=== PATIENT | male | born 1990 | race Two or more races ===

== ENCOUNTER 2017-03-26 13:38 | Inpatient (IN) | payer OTHER ==
[~2017-03-26] VITALS: Ht 177.8 cm; Wt 146.5 kg
[2017-03-26] MEDS ORDERED: methylPREDNISolone INJ 125 MG/2 ML VIAL (J2930) IV ONE (14:15)
[2017-03-26] MEDS ORDERED: ALBUTEROL SULFATE 2.5 MG/0.5 ML INH NEB SOLN NEB ONE (14:15)
[2017-03-26 14:16] LABS: BASO # 0.1 10^3/uL (0.0-0.2); BASO % 0.3 % (0.0-1.0); EOS % 0.1 % (0.0-3.0); IMMATURE GRANULOCYTE % 0.9 % (0-0); LYMPH # 2.5 10^3/uL (1.5-6.5); LYMPH % 13.7 % (24.0-44.0); MEAN CORPUSCULAR HEMOGLOBIN 25.9 pg (27.0-33.0); MEAN CORPUSCULAR HGB CONC 30.9 g/dl (32.0-36.5); MEAN CORPUSCULAR VOLUME 83.6 fl (80.0-96.0); MONO # 1.1 10^3/uL (0.0-0.8); MONO % 5.9 % (0.0-5.0); NEUTROPHILS # 14.3 10^3/uL (1.8-7.7); NEUTROPHILS % 79.1 % (36.0-66.0); PLATELET COUNT, AUTOMATED 255 10^3/uL (150-450); RED CELL DISTRIBUTION WIDTH 14.7 % (11.5-14.5); WHITE BLOOD COUNT 18.1 10^3/uL (4.0-10.0)
[2017-03-26 14:36] LABS: ABG BASE EXCESS -3.3 (-2.0-2.0); ABG HCO3 20.1 MEQ/L (22.0-26.0); ABG PARTIAL PRESSURE CO2 31.4 mmHg (35.0-45.0); ABG PARTIAL PRESSURE O2 61.9 mmHg (75.0-100.0); ABG STANDARD HCO3 21.6 MEQ/L (22.0-26.0); ABG TOTAL CO2 21.1 MEQ/L (22.0-29.0); ABG pH (ARTERIAL) 7.424 UNITS (7.350-7.450)
[2017-03-26 14:44] LABS: ALBUMIN 3.1 GM/DL (3.2-5.2); ALBUMIN/GLOBULIN RATIO 0.69 (1.00-1.93); ALKALINE PHOSPHATASE 103 U/L (45-117); ALT/SGPT 92 U/L (12-78); ANION GAP 11 MEQ/L (8-16); AST/SGOT 57 U/L (7-37); BILIRUBIN,DIRECT 0.3 MG/DL (0.0-0.2); BLOOD UREA NITROGEN 14 MG/DL (7-18); CALCIUM LEVEL 8.5 MG/DL (8.5-10.1); CARBON DIOXIDE LEVEL 21 MEQ/L (21-32); CHLORIDE LEVEL 108 MEQ/L (98-107); CREATININE FOR GFR 1.16 MG/DL (0.70-1.30); GLOMERULAR FILTRATION RATE > 60.0 (>60); GLUCOSE, FASTING 122 MG/DL (70-105); POTASSIUM SERUM 4.6 MEQ/L (3.5-5.1); SODIUM LEVEL 140 MEQ/L (136-145); TOTAL PROTEIN 7.6 GM/DL (6.4-8.2)
--- NOTE | 2017-03-26 14:47 | REP ---
REASON: Dyspnea. COMPARISON: 05/01/2013. The technique utilized in obtaining the radiograph has magnified the cardiac silhouette and accentuated the interstitial markings. FINDINGS: The superior mediastinal structures are midline. The cardiac silhouette is unremarkable in size, shape, and position. The diaphragmatic surfaces of the lungs are regular, and the costophrenic angles are clear. The pulmonary cho are clear. The imaged osseous structures are intact. IMPRESSION: There is no acute cardiopulmonary disease. There is some motion artifact obscuring the fine detail and there is less than optimal beam penetration due to the patient's body habitus. If relevant, consider PA and lateral views in the department of radiology. Signed by Jayjay Avelar DO 03/26/2017 02:48 P
[2017-03-26] MEDS: IPRATROPIUM 0.5MG/ALBUTEROL 2.5MG INH SOL UD 3ML (DUONEB)(J7620) NEB SCH ×3 (15:18→16:14)
[2017-03-26] MEDS ORDERED: ISOVUE-370 76% 100ML VIAL (Q9967) As Ordered ONE (15:29)
[2017-03-26] MEDS ORDERED: ACETAMINOPHEN TAB 650MG DOSE (2X325MG) PO PRN (16:15)
[2017-03-26] MEDS ORDERED: ONDANSETRON 4MG/2ML VIAL (J2405) IV PRN (16:15)
[2017-03-26] MEDS ORDERED: CEFTRIAXONE SOD 2 GM in APPROPRIATE DILUENT 1 EA IV ONE (16:30)
[2017-03-26] MEDS ORDERED: IPRATROPIUM 0.5MG/ALBUTEROL 2.5MG INH SOL UD 3ML (DUONEB)(J7620) NEB PRN (16:30)
[2017-03-26] MEDS ORDERED: AZITHROMYCIN INJ 500 MG, VIAL MATE ADAPTER 1 EACH in D5W 250 ML IV ONE (16:30)
[2017-03-26] MEDS ORDERED: HEPARIN SOD (PORCINE) 5000 UNITS/ML VIAL IV PRN (16:45)
[2017-03-26] MEDS ORDERED: SODIUM CHLORIDE 0.9% 1000 ML IV ONE (17:00)
--- NOTE | 2017-03-26 18:34 | HPEPDOC ---
[facility] Medical History & Physical Date of Admission Mar 26, 2017 Primary Care Physician: A Other Provider PCP: NONE Attending Physician: ROSALBA PARRY MD History and Physical CHIEF COMPLAINT: Cough, shortness of breath HISTORY OF PRESENT ILLNESS: 27-year-old obese male with 5-7 day history of worsening dyspnea on exertion, shortness of breath, productive sputum, but denies fevers, chills, rigors. He was seen in the emergency department had been given nebulizer treatments, Solu-Medrol and continued to have issues with desaturating when he would lie flat and attempt to perform a lower extremity Doppler ultrasound. He says that he has been exposed to sick family members at home. His symptoms started out as he thought he had a flulike illness. He's been using NyQuil, but is not been using any other home remedies and he denies using any inhalers. He denies any significant past medical history no recent travel, no surgery. No lower extremity injuries. The emergency department, he was tachycardic, a mild left shift, lactic acidosis of 2.3. Portable chest x-ray did demonstrate bibasilar patchy infiltrates. His d-dimer was greater than 4000, and his CT angiogram of the chest didn't suggest right basilar pneumonia, and question of bibasilar pulmonary emboli. ED physician did attempt to do a lower extremity Doppler ultrasound. However, the patient did desaturate and was unable to tolerate the test to be performed. PAST MEDICAL HISTORY: Morbid obesity Prior history of depression (not currently being treated. He denies any suicidal ideation) PAST SURGICAL HISTORY: None SOCIAL HISTORY: Denies tobacco use. Denies alcohol use except for rare occasion. Denies illicit drug use. Positive sick contacts with family members. No recent travel. FAMILY HISTORY: Noncontributory ALLERGIES: Please see below. REVIEW OF SYSTEMS: CONSTITUTIONAL: No fever, chills, weight loss, nausea or vomiting . HEENT: No headache, lightheadedness, blurred or loss of vision. No difficulty with speech or swallow. CARDIOVASCULAR: No chest pain, palpitations, paroxysmal nocturnal dyspnea or lower extremity edema RESPIRATORY: Dyspnea on exertion with cough, wheeze and productive sputum. He denies any hemoptysis. GENITOURINARY: No dysuria, frequency, or discharge MUSCULOSKELETAL: No bone, muscle or joint pain. GASTROINTESTINAL: No Nausea, vomiting, change in appetite. Bowel movements are regular without hematochezia or melena. No bladder or bowel incontinence. SKIN: No complaint of lesions, abrasions or rashes NEUROLOGICAL: No blurred vision, headaches, paraesthesias or paralysis PSYCHIATRIC: No depression, anxiety, audiovisual hallucinations. No suicidal ideations. ENDOCRINE: Denies history of diabetes or thyroid disorder. No history of endocrine abnormalities. HEMATOLOGIC/ONCOLOGIC: No bleeding or bruising disorders. Denies VTE. LYMPHATIC: No lumps, bumps or swelling of neck, axilla or groin. No night sweats or weight loss. HOME MEDICATIONS: Please see below. PHYSICAL EXAMINATION: VITAL SIGNS: Please see below. GENERAL: NAD, A&OX3, Pleasant HEENT: PERRLA, throat clear, neck supple, no JVD CARDIOVASCULAR: RRR RESPIRATORY: Diminished bibasilar breath sounds with faint rhonchi and occasional wheeze. ABDOMINAL: Obese/soft, NT/ND normoactive bowel sounds EXTREMITIES: no edema/no calf tenderness NEUROLOGICAL: CN'S II-XII grossly intact PSYCHOLOGICAL: negative LABORATORY DATA: See below. IMAGING: CT angiogram of the chest: Bibasilar infiltrates, question of bilateral lower lobe already emboli. Chest x-ray: Bibasilar infiltrates Twelve-lead EKG: Sinus tachycardia with ventricular rate of 116, questionable interventricular conduction delay but no acute ST-T wave abnormality. MICROBIOLOGY: Please see below. IMPRESSION: 27-year-old gentleman presents to the emergency department with 5-7 days, worsening symptoms of dyspnea on exertion, productive sputum, cough and what appears to be bilateral lower lobe pneumonia/sepsis and questionable palmar he emboli. PROBLEM LIST: 1. Community acquired pneumonia. 2. Sepsis. 3. Leukocytosis. 4. Lactic acidosis. 5. Questionable bilateral lower lobe pulmonary emboli with elevated d-dimer and questionable findings on CT angiogram of the chest. 6. Morbid obesity which complicates medical care. PLAN: Patient be admitted to ICU on telemetry. We'll continue with DuoNeb's, a cappella, IV Zithromax and Rocephin. Continue with IV fluids per sepsis bundle and reflex lactic acid in 4 hours. Blood cultures and sputum cultures are pending. Influenza A and B testing was negative. Should his oxygen status necessitate, consider CPAP. He has poor venous access and I've consented him for central line placement should he need one. Regarding the acute pulmonary emboli: This is a questionable finding on CT angiogram of the chest. He was unable to tolerate lying flat for Doppler venous ultrasound to rule out DVT. I reviewed this with pulmonology and we were unable to determine any further on CT angiogram due to poor quality. In the meantime, we'll go ahead and start on heparin drip, IV fluids for sepsis. Additionally, we could consider attempting venous ultrasound lower extremities tomorrow versus repeat CT angiogram of the chest in 24-48 hours once he is hydrated better. DVT PROPHYLAXIS: Heparin drip DISPOSITION: Greater than 2 midnights, and he'll need to be established with a new primary care provider prior to discharge. Vital Signs Vital Signs Date Time Temp Pulse Resp B/P (MAP) Pulse Ox O2 Delivery O2 Flow Rate FiO2 03/26/17 17:24 98.2 03/26/17 17:08 115 91 03/26/17 15:43 24 03/26/17 14:05 Nasal Cannula 4.0 90 Laboratory Data Labs 24H Laboratory Tests 2 03/26/17 14:07: Immature Granulocyte % (Auto) 0.9H, White Blood Count 18.1H, Red Blood Count 4.95, Hemoglobin 12.8L, Hematocrit 41.4L, Mean Corpuscular Volume 83.6, Mean Corpuscular Hemoglobin 25.9L, Mean Corpuscular Hemoglobin Concent 30.9L, Red Cell Distribution Width 14.7H, Platelet Count 255, Neutrophils (%) (Auto) 79.1H , Lymphocytes (%) (Auto) 13.7L, Monocytes (%) (Auto) 5.9H, Eosinophils (%) (Auto ) 0.1, Basophils (%) (Auto) 0.3, Neutrophils # (Auto) 14.3H, Lymphocytes # (Auto ) 2.5, Monocytes # (Auto) 1.1H, Eosinophils # (Auto) 0.0, Basophils # (Auto) 0.1 , Immature Granulocyte # (Auto) 0.2H, Nucleated Red Blood Cells % (auto) 0.2H, Anion Gap 11, Glomerular Filtration Rate > 60.0, Lactic Acid Level 2.3*H, Calcium Level 8.5, Aspartate Amino Transf (AST/SGOT) 57H, Alanine Aminotransferase (ALT/SGPT) 92H, Alkaline Phosphatase 103, Total Bilirubin 1.0, Direct Bilirubin 0.3H, Total Protein 7.6, Albumin 3.1L, Albumin/Globulin Ratio 0.69L, Thyroid Stimulating Hormone (TSH) 4.590H 03/26/17 14:16: Blood Gas Bicarbonate Standard 21.6L, Arterial Blood pH 7.424, Arterial Blood Partial Pressure CO2 31.4L, Arterial Blood Partial Pressure O2 61.9L, Arterial Blood Total CO2 21.1L, Arterial Blood HCO3 20.1L, Arterial Blood Base Excess - 3.3L, Arterial Blood Oxygen Saturation 90.4L 03/26/17 14:39: Activated Partial Thromboplast Time 20.0L, D-Dimer, Quantitative > 4000.0H CBC/BMP Laboratory Tests 03/26/17 14:07 Red Blood Count 4.95, Mean Corpuscular Volume 83.6, Mean Corpuscular Hemoglobin 25.9 L, Mean Corpuscular Hemoglobin Concent 30.9 L, Red Cell Distribution Width 14.7 H, Neutrophils (%) (Auto) 79.1 H, Lymphocytes (%) (Auto) 13.7 L, Monocytes (%) (Auto) 5.9 H, Eosinophils (%) (Auto) 0.1, Basophils (%) (Auto) 0.3, Neutrophils # (Auto) 14.3 H, Lymphocytes # (Auto) 2.5, Monocytes # (Auto) 1.1 H , Eosinophils # (Auto) 0.0, Basophils # (Auto) 0.1 Microbiology Microbiology 03/26/17 Blood Culture, Received Pending 03/26/17 Blood Culture, Received Pending 03/26/17 Influenza Virus Type A Antigen - Final, Complete 03/26/17 Influenza Virus Type B Antigen - Final, Complete Home Medications No Active Prescriptions or Reported Meds Allergies Coded Allergies: No Known Allergies (Unverified , 03/26/17) JAYY MCGEE DO Mar 26, 2017 18:34
[2017-03-26 19:00] VITALS: BP 142/84
[2017-03-26 20:00] VITALS: PULSE 120
[2017-03-26 20:22] VITALS: O2SAT 95
[2017-03-26] MEDS: DOCUSATE SODIUM 100 MG CAP PO SCH (21:00)
[2017-03-26] MEDS ORDERED: LIDOCAINE 2% MDV 20 ML VIAL As Ordered ONE (22:22)
[2017-03-26] MEDS ORDERED: LIDOCAINE 1% MDV 20ML VIAL As Ordered ONE (22:22)
[2017-03-26] MEDS: HEPARIN DRIP 25,000 UNITS in APPROPRIATE DILUENT 1 EA IV SCH (23:35)
[2017-03-26] MEDS ORDERED: FUROSEMIDE 40 MG/4 ML VIAL (J1940) IV ONE (23:45)
[2017-03-27] VITALS (9 sets, daily range): BP systolic 129–148; BP diastolic 58–91; O2SAT 95–97
[2017-03-27] MEDS: IPRATROPIUM 0.5MG/ALBUTEROL 2.5MG INH SOL UD 3ML (DUONEB)(J7620) NEB SCH ×4 (00:25→23:58)
[2017-03-27] MEDS: methylPREDNISolone INJ 125 MG/2 ML VIAL (J2930) IV SCH ×2 (01:08→15:16)
[2017-03-27] MEDS ORDERED: LIDOCAINE 1% MDV 20ML VIAL SC ONE (02:30)
[2017-03-27 05:45] LABS: MEAN CORPUSCULAR HEMOGLOBIN 26.2 pg (27.0-33.0); MEAN CORPUSCULAR HGB CONC 31.1 g/dl (32.0-36.5); MEAN CORPUSCULAR VOLUME 84.2 fl (80.0-96.0); PLATELET COUNT, AUTOMATED 224 10^3/uL (150-450); RED CELL DISTRIBUTION WIDTH 14.9 % (11.5-14.5)
[2017-03-27 06:19] LABS: ANION GAP 10 MEQ/L (8-16); BLOOD UREA NITROGEN 16 MG/DL (7-18); CALCIUM LEVEL 8.7 MG/DL (8.5-10.1); CARBON DIOXIDE LEVEL 25 MEQ/L (21-32); CHLORIDE LEVEL 107 MEQ/L (98-107); CREATININE FOR GFR 1.29 MG/DL (0.70-1.30); GLOMERULAR FILTRATION RATE > 60.0 (>60); GLUCOSE, FASTING 153 MG/DL (70-105); POTASSIUM SERUM 4.9 MEQ/L (3.5-5.1); SODIUM LEVEL 142 MEQ/L (136-145)
--- NOTE | 2017-03-27 07:15 | ECGEPIP ---
Stationary ECG Study [facility] - ED Test Date: 2017-03-26 Pat Name: POLINA BEAUCHAMP Department: Room: [place] [address] Gender: M Is Architect: faby : 1990 Requested By: Sigifredo Haynes Order Number: [id number] Reading MD: Sigifredo Villa Measurements Intervals [place] Rate: 116 P: 40 [place]: 145 QRS: -13 QRSD: 104 T: 32 QT: 348 QTc: 485 Interpretive Statements SINUS TACHYCARDIA LOW QRS VOLTAGE IN PRECORDIAL LEADS INCOMPLETE RIGHT BUNDLE BRANCH BLOCK POOR R WAVE PROGRESSION NO PRIORS FOR COMPARISON Electronically Signed On 03-27-2017 7:14:57 EST by Sigifredo Villa
--- NOTE | 2017-03-27 07:26 | REP ---
Portable chest, 11:00 p.m., single AP view, the patient semi upright: Comparison is a study from 02:13 p.m. earlier this same date. There is a left subclavian central venous catheter with the tip in the superior vena cava. There is no pneumothorax. Lung cho are clear and unchanged. The study is underpenetrated as previously. Cardiac size is normal for portable positioning. Impression: Left subclavian central venous catheter. No pneumothorax. No other interval change. Signed by Checo Okeefe MD 03/27/2017 07:18 A
--- NOTE | 2017-03-27 07:30 | REP ---
REASON FOR EXAM: Dyspnea. COMPARISON: None. CONTRAST: 100 mL Isovue 370. The examination is markedly limited due to the patient's body habitus. There is significant ring and beam hardening artifact throughout the exam. There is poor visualization of the pulmonary arterial vasculature to a such a degree that a pulmonary embolus cannot be definitely ruled in or ruled out. There appear to be focal filling defects in the lower lobe pulmonary arteries, right greater than left. There are bilateral lower lobe opacities and opacities in the posterior segment of the upper lobes as well, some of which have air bronchograms. There is no evidence of a pleural or pericardial effusion. There is no evidence of an abnormality involving the imaged upper abdomen. There is no evidence of an abnormality involving the osseous structures. IMPRESSION: Marked exam limitations. Possible lower lobe emboli Bilateral lung opacities possibly representing pneumonia or atelectasis or a combination there of. Signed by Jayjay Avelar DO 03/27/2017 02:06 P
[2017-03-27 08:07] LABS: T UPTAKE 36 % (33-40)
[2017-03-27] MEDS: DOCUSATE SODIUM 100 MG CAP PO SCH ×2 (08:13→20:15)
[2017-03-27 09:45] LABS: THYROXINE (T4) 9.3 UG/DL (4.5-12.0)
[2017-03-27] MEDS: HEPARIN DRIP 25,000 UNITS in APPROPRIATE DILUENT 1 EA IV SCH ×2 (10:11→20:17)
--- NOTE | 2017-03-27 12:24 | RO ---
DATE OF PROCEDURE: 03/26/2017 PREPROCEDURE DIAGNOSIS: Need for vascular access, pulmonary embolism, sepsis. POSTPROCEDURE DIAGNOSIS: Need for vascular access, pulmonary embolism, sepsis. PROCEDURE: Insertion of left subclavian central line. SURGEON: Dr. Vasu Bae. FELLMONGERY WORKER: None. ANESTHESIA: 1% lidocaine. DESCRIPTION OF PROCEDURE: The patient is an morbidly obese. The skin was stretched with adhesive tape so that the clavicle could be at least palpated. The patient was then prepped and draped in the usual sterile fashion and the skin infiltrated with 1% lidocaine. The vein was found on the first pass and the wire passed without difficulty. The tract was dilated and the catheter was placed with some difficulty secondary to its curving under the clavicle secondary to all the adipose tissue. Nonetheless, it went in and the wire could be removed without difficulty. The ports were aspirated and flushed without difficulty and the catheter was secured to the chest wall with #3-0 silk suture. The patient tolerated the procedure well and a chest x-ray is pending.
--- NOTE | 2017-03-27 13:01 | CR ---
DATE OF CONSULTATION: 03/27/2017 Time patient was seen was at 10:00 a.m. CONSULTING PHYSICIAN: Dr. Gustafson SWITCHBOARD OPERATOR: Dr. Shell REASON FOR CONSULTATION: Hypoxic respiratory failure. CHIEF COMPLAINT: Shortness of breath. PRIMARY CARE PROVIDER: None. HISTORY OF PRESENT ILLNESS: 27-year-old morbidly obese male who presented with shortness of breath and productive sputum. Per patient, his symptoms with severe shortness of breath started 5 to 7 days ago and it has been progressively getting worse. The patient also admits to reduced urination and perfuse sweating. Per patient, this has never happened in the past; however, he did upper respiratory infection last winter, however it did not require him to be hospitalized. The patient also reported that the patient's niece has strep throat. The patient admits to mild sputum production, which was yellow and currently does not have any sputum. He denies any recent traveling; however, he did go to [place] back in October this year. It was a [address] ride and he took one break. His job also requires 9 hours of sitting per day and he takes four to five breaks per day also. Otherwise, denies any pain in the legs except on the right leg numbness. Denies any shortness of breath at baseline. Sleeps with one pillow and lying on his side. Does not have a family doctor and does not remember the last time that he saw primary care provider. Otherwise, the patient denies any fever, chills, abdominal pain, nausea, vomiting, diarrhea, constipation, any problem with urination currently or any blood in the urine. Denies any change in the lower extremity size or swelling. ALLERGIES: No known drug allergies. PAST MEDICAL HISTORY: 1. Morbid obesity. 2. Prior history of depression. PAST SURGICAL HISTORY: Denies. FAMILY HISTORY: The patient's father has diabetes and pancreatitis. 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 Denies any smoking, drinking or recreational drug use. Admits to sick contact with family member. Denies any recent traveling. Did travel six months ago. REVIEW OF SYSTEMS: GENERAL: Denies any fever or chills. Admits to perfuse sweating. Admits to traveling six months ago. HEENT: Denies any changes with vision, hearing or taste. CARDIOVASCULAR: Denies any chest pain. Admits to exertional shortness of breath at baseline. RESPIRATORY: Denies any lung problems. Denies any wheezing. Admits to cough and sputum production. GASTROINTESTINAL: Denies any abdominal pain, nausea, vomiting, diarrhea, constipation. MUSCULOSKELETAL: Denies any pain anywhere. Admits to right leg numbness at baseline. SKIN: Denies any ulcerations, lumps or bumps anywhere. NEUROLOGIC: Denies any blurred vision, headaches, paralysis. Admits to feeling lightheadedness on exertion, however. PSYCHIATRIC: Denies any current depression, has a history of depression. ENDOCRINE: Denies any polydipsia, polyuria. Admits to reduced urination; however, in the past days. Admits to severe sweating. HEMATOLOGY/ONCOLOGY: Denies any easy bruising or any bleeding anywhere. HOME MEDICATIONS: None. PHYSICAL EXAMINATION: VITAL SIGNS: Temperature 96.4, pulse 108, respirations 30, blood pressure 129/58, oxygen saturation 97% on CPAP with a PEEP of 6, FiO2 of 40. GENERAL: The patient is severely morbidly obese, young male who was awake, alert, oriented times three. Does not appear to be in distress. Lying comfortably in his recliner with head elevated at 70 degrees. HEENT: Normocephalic, atraumatic. PERRL, EOMI, Mucosa moist. NECK: Supple. No neck lymphadenopathy. Left TLC in place dry, clean and intact. CARDIOVASCULAR: Regular rate and rhythm. Distant heart sounds due to body habitus. LUNGS: Reduced breathing sounds due to body habitus bilaterally. Otherwise, chest rises equally bilaterally. ABDOMEN: Positive bowel sounds. Soft, nontender, nondistended. No peritoneal signs. No ecchymosis. Obese. EXTREMITIES: No edema, clubbing, or cyanosis; however, there was severe obesity involved. Nontender to palpation, however. SKIN: Warm and dry. NEUROLOGIC: Cranial nerves II through XII intact. No focal neurological deficits. LABORATORY DATA: WBC 15, hemoglobin 12.4, hematocrit 39.9, MCV was 84.2, platelet count was 224. Sodium 142, potassium 4.9, chloride 107, bicarbonate 25, BUN 16, creatinine 1.29 , fasting glucose 153, lactic acid last night was 2.1, calcium 8.7, C-reactive protein 7. Free T4 3.1, T3 of 36. PTT 38.9. D-dimer yesterday was greater than 4000. Blood culture times two is currently pending. Influenza screening has been negative. Respiratory panel done this morning was negative. The patient had a portable chest x-ray yesterday after line placement that showed left subclavian central line catheter. No pneumothorax. On 03/26/2017 at 3:30, the patient had a CT angio of the chest that showed marked examination limitations due to obesity, possible lower lobe emboli, bilateral lung opacities, possibly representing pneumonia or atelectasis or a combination thereof. On the same day, the patient also had portable chest x-ray that shows no acute cardiopulmonary disease. Some motion artifact obscuring the fine details and there is less than optimal beam penetration due to the patient's body habitus. Current hospital medications include: - Azithromycin 500 mg IV every 24 hours - Rocephin 1 gram IV every 24 hours - warfarin 5 mg by mouth daily - Solu-Medrol 80 mg IV every 12 hours - DuoNeb treatment every 8 hours - Colace 100 mg by mouth twice a day - heparin drip - Tylenol 650 mg one tablet by mouth every 4 hours as needed - Zofran 4 mg one tablet by mouth every 6 hours as needed ASSESSMENT AND PLAN: 27-year-old male with a past medical history of morbid obesity with a Body Mass Index (BMI) of 95, presented with shortness of breath and we have been consulted to manage the patient's hypoxic respiratory failure. 1. SOB secondary to Hypoxic respiratory failure possible due to community acquired pneumonia. The patient's initial ABG shows PO2 of 61.9. The patient also has elevated lactic acid of 2.3. Was on CPAP from admission. He may be off CPAP may continue throughout the night. And use supplementary oxygen through out day. Continue current antibiotics for possible pneumonia. Acapella has been added. Continue steroid taper and IV hydration as needed. Continue to followup with blood culture, and obtain sputum culture continue to monitor. 2. Possible lower lobe PE, he has a D-dimer of over 4000. Severe morbid obesity and sedentary life style certainly elevate risk for DVT. CT angio of the chest shows possible pulmonary embolism bilaterally. The patient has already been started on heparin drip, as well as oral warfarin. We will recommend to followup with lower extremity Doppler duplex and continue current therapy. 3.KEYA suspected.....Will clearly need formal NPSG after discharge The patient has been discussed with attending doctor, Dr. Shell. My faculty preceptor for this patient encounter was physically present during the encounter and was fully available. All aspects of the patient interview, examination, medical decision making process, and medical care plan development were reviewed and approved by the faculty preceptor. The faculty preceptor is aware and concurs with the plan as stated in the body of this note and will attest to such by his/her co-signature. IESHA
[2017-03-27 13:08] LABS: INR 1.29
--- NOTE | 2017-03-27 13:51 | IPNPDOC ---
Subjective Date Seen The patient was seen on 03/27/17. Subjective Chief Complaint/HPI The patient is a 27-year-old male admitted with a reason for visit of Community Aquired Pneumonia, Sepsis. Events since last encounter Jed Cordova is a 27 yo male who presented with SOB. He claims that he still has SOB and chest pain while laying flat but it is improved since the previous day. He also admits to the SOB and chest pain when he moved from his bed to his chair. The chair was positioned immediately adjacent to his bed. He also admits to having a dry cough. He denies recent history of unilateral or bilateral leg pain, skin changes, or warmth. He had experienced urinary retention for the past day but it has since been resolved with Lasix and he claims that the discomfort from that is now gone. He denies fevers, chills, nausea, vomiting. He feels he is sweating more than usual and attributes this to being hot. General: Denies: Chills, Fatigue, Malaise, Normal Appetite Constitutional: Denies: Chills, Fever, Night Sweats Eyes: Denies: Vision change ENT: Denies: Head Aches, Dysphagia, Sore Throat Skin: Denies: Rash, Lesions, Bruising Pulmonary: Reports: Dyspnea, Cough (non productive) Cardiovascular: Reports: Chest Pain, Orthopnea, Denies: Palpitations, Edema Gastrointestinal: Denies: Nausea, Vomiting, Abdominal Pain, Diarrhea, Constipation, Melena, Hematochezia Genitourinary: Denies: Retention Hematologic: Denies: Enlarged Lymph Nodes Musculoskeletal: Denies: Neck Pain Neurological: Denies: Weakness Psych: Reports: Mood Normal Objective Physical Examination General Exam: Positive: Alert, Cooperative, No Acute Distress Eye Exam: Positive: PERRLA, EOMI ENT Exam: Positive: Atraumatic Neck Exam: Positive: Supple Chest Exam: Positive: Rales, Diminished (crackles at the base of lungs), Negative: Clear to auscultation, Wheezing Heart Exam: Positive: Tachycardic, Other (distant heart sounds), Negative: Gallops, Murmurs, Rubs Abdomen Exam: Positive: Normal bowel sounds, Soft, Negative: Tenderness, Hepatospenomegaly Extremity Exam: Positive: Normal pulses, Negative: Clubbing, Cyanosis, Edema Skin Exam: Positive: Nl turgor and temperature, Other skin issue (acanthosis nigricans noted on bilateral hands and back of the neck), Negative: Rash Neuro Exam: Positive: Normal Speech, Cranial Nerves 3-12 NL Psych Exam: Positive: Mental status NL, Mood NL, Oriented x 3 Assessment /Plan Problems (1) Pulmonary emboli Status: Acute Problem Text: -Ct angio showed possible lower lobe emboli. Patient is too large to get a V/Q scan. Will therefore treat him therapeutically as if he had confirmed PE -Will d/c heparin and switch to Warfarin today -Continue to monitor O2, sats. -He does not have a primary care physician, therefore this will need to be established prior to discharge for follow-up (2) CAP (community acquired pneumonia) Status: Acute Problem Text: -Ct angio showed bilateral lung opacities which possibly are pneumonia, atelectasis, or the combination of both. -conitinue azithromycin 500 mg IV q24h and ceftriaxone 1 mg IV q24h until clinically stable. Continue to monitor O2 sats. -Attempt to get sputum culture if possible. (3) Acute respiratory failure with hypoxia Problem Text: -The patient was started on CPAP upon admission, he does continue to wear this morning. -Given the patient's critical condition, Pulmonology/Critical Care has been consulted. Their input is greatly appreciated. (4) Sepsis Status: Resolved Problem Text: -conitinue azithromycin 500 mg IV q24h and ceftriaxone 1 mg IV q24h until clinically stable. -Continue to monitor fluids and blood pressure. Monitor central line placement. (5) Lactic acidosis Status: Resolved Response to Treatment: Improving (6) Anemia (7) Leukocytosis (8) Urinary retention Status: Resolved (9) Acanthosis nigricans Status: Chronic (10) Morbid obesity Status: Chronic Plan/VTE VTE Prophylaxis Ordered?: Yes (heparin) VS, I&O, 24H, Fishbone Vital Signs/I&O Vital Signs Date Time Temp Pulse Resp B/P (MAP) Pulse Ox O2 Delivery O2 Flow Rate FiO2 03/27/17 10:18 104 30 94 NIPPV (BIPAP/CPAP) 50 03/27/17 08:00 96.4 129/58 (81) 03/26/17 20:00 15.0 Laboratory Data 24H LABS Laboratory Tests 2 03/26/17 14:07: Immature Granulocyte % (Auto) 0.9H, White Blood Count 18.1H, Red Blood Count 4.95, Hemoglobin 12.8L, Hematocrit 41.4L, Mean Corpuscular Volume 83.6, Mean Corpuscular Hemoglobin 25.9L, Mean Corpuscular Hemoglobin Concent 30.9L, Red Cell Distribution Width 14.7H, Platelet Count 255, Neutrophils (%) (Auto) 79.1H , Lymphocytes (%) (Auto) 13.7L, Monocytes (%) (Auto) 5.9H, Eosinophils (%) (Auto ) 0.1, Basophils (%) (Auto) 0.3, Neutrophils # (Auto) 14.3H, Lymphocytes # (Auto ) 2.5, Monocytes # (Auto) 1.1H, Eosinophils # (Auto) 0.0, Basophils # (Auto) 0.1 , Immature Granulocyte # (Auto) 0.2H, Nucleated Red Blood Cells % (auto) 0.2H, Anion Gap 11, Glomerular Filtration Rate > 60.0, Lactic Acid Level 2.3*H, Calcium Level 8.5, Aspartate Amino Transf (AST/SGOT) 57H, Alanine Aminotransferase (ALT/SGPT) 92H, Alkaline Phosphatase 103, Total Bilirubin 1.0, Direct Bilirubin 0.3H, Total Protein 7.6, Albumin 3.1L, Albumin/Globulin Ratio 0.69L, Thyroid Stimulating Hormone (TSH) 4.590H 03/26/17 14:16: Blood Gas Bicarbonate Standard 21.6L, Arterial Blood pH 7.424, Arterial Blood Partial Pressure CO2 31.4L, Arterial Blood Partial Pressure O2 61.9L, Arterial Blood Total CO2 21.1L, Arterial Blood HCO3 20.1L, Arterial Blood Base Excess - 3.3L, Arterial Blood Oxygen Saturation 90.4L 03/26/17 14:39: Activated Partial Thromboplast Time 20.0L, D-Dimer, Quantitative > 4000.0H 03/26/17 18:27: Lactic Acid Followup at 4 Hours 2.1*H 03/26/17 22:57: Activated Partial Thromboplast Time 27.2 03/27/17 05:34: Activated Partial Thromboplast Time 38.9H, Nucleated Red Blood Cells % (auto) 0.3H, Anion Gap 10, Glomerular Filtration Rate > 60.0, Blood Urea Nitrogen 16, Creatinine 1.29, Sodium Level 142, Potassium Level 4.9, Chloride Level 107, Carbon Dioxide Level 25, Calcium Level 8.7, C-Reactive Protein, Quantitative 7.00H, Thyroid Stimulating Hormone (TSH) 3.120, Free Thyroxine Index 3.3, Thyroxine (T4) 9.3, Triiodothyronine (T3) Uptake 36 CBC/BMP Laboratory Tests 03/26/17 14:07 Red Blood Count 4.95, Mean Corpuscular Volume 83.6, Mean Corpuscular Hemoglobin 25.9 L, Mean Corpuscular Hemoglobin Concent 30.9 L, Red Cell Distribution Width 14.7 H, Neutrophils (%) (Auto) 79.1 H, Lymphocytes (%) (Auto) 13.7 L, Monocytes (%) (Auto) 5.9 H, Eosinophils (%) (Auto) 0.1, Basophils (%) (Auto) 0.3, Neutrophils # (Auto) 14.3 H, Lymphocytes # (Auto) 2.5, Monocytes # (Auto) 1.1 H , Eosinophils # (Auto) 0.0, Basophils # (Auto) 0.1 03/27/17 05:34 Red Blood Count 4.74, Mean Corpuscular Volume 84.2, Mean Corpuscular Hemoglobin 26.2 L, Mean Corpuscular Hemoglobin Concent 31.1 L, Red Cell Distribution Width 14.9 H, Calcium Level 8.7 Microbiology Microbiology 03/26/17 Blood Culture, Received Pending 03/26/17 Blood Culture, Received Pending 03/27/17 Respiratory Virus Panel (PCR) ([facility]) - Final, Complete 03/26/17 Influenza Virus Type A Antigen - Final, Complete 03/26/17 Influenza Virus Type B Antigen - Final, Complete GME ATTESTATION GME ATTESTATION My faculty preceptor for this patient encounter was physically present during the encounter and was fully available. All aspects of the patient interview, examination, medical decision making process, and medical care plan development were reviewed and approved by the faculty preceptor. The faculty preceptor is aware and concurs with the plan as stated in the body of this note and will attest to such by his/her cosignature. ATTENDING NOTE I have both independently examined this patient as well as reviewed the note. I have discussed in detail with the resident the findings and plan of treatment as documented in the residents note. I will continue to follow the patient and offer further guidance to the patients care as necessary during this hospital stay. NEVIN Page MD, DO Mar 27, 2017 11:31 ROSALBA PARRY MD Mar 31, 2017 09:31
--- NOTE | 2017-03-27 16:14 | REP ---
Bilateral lower extremity Duplex Doppler venous ultrasound: Real time compression and duplex Doppler interrogation of the bilateral lower extremity deep venous system is performed. Bilaterally, the common femoral, superficial femoral and popliteal veins are fully compressible with transducer pressure and demonstrate normal spontaneous and phasic flow, without evidence of deep venous thrombosis. Impression: No evidence of deep venous thrombosis of the bilateral lower extremity femoral popliteal venous system. Signed by Checo Thibodeaux MD 03/27/2017 04:05 P
[2017-03-27] MEDS: CEFTRIAXONE SOD 1 GM in APPROPRIATE DILUENT 1 EA IV SCH (17:17)
[2017-03-27] MEDS: WARFARIN SOD 5 MG TAB PO SCH (17:17)
[2017-03-27] MEDS ORDERED: SODIUM CHLORIDE 0.9% INJ 10 ML SYR IV PRN (17:45)
[2017-03-27] MEDS: AZITHROMYCIN INJ 500 MG, VIAL MATE ADAPTER 1 EACH in D5W 250 ML IV SCH (18:13)
[2017-03-27] MEDS: SODIUM CHLORIDE 0.9% INJ 10 ML SYR IV SCH (22:00)
[2017-03-28] VITALS (7 sets, daily range): BP systolic 129–169; BP diastolic 76–95; O2SAT 98
[2017-03-28] MEDS: methylPREDNISolone INJ 125 MG/2 ML VIAL (J2930) IV SCH ×2 (01:52→14:36)
[2017-03-28] MEDS: HEPARIN DRIP 25,000 UNITS in APPROPRIATE DILUENT 1 EA IV SCH ×3 (04:43→20:30)
[2017-03-28 05:17] LABS: MEAN CORPUSCULAR HEMOGLOBIN 26.1 pg (27.0-33.0); MEAN CORPUSCULAR HGB CONC 30.8 g/dl (32.0-36.5); MEAN CORPUSCULAR VOLUME 84.6 fl (80.0-96.0); PLATELET COUNT, AUTOMATED 225 10^3/uL (150-450); RED CELL DISTRIBUTION WIDTH 14.9 % (11.5-14.5); WHITE BLOOD COUNT 15.4 10^3/uL (4.0-10.0)
[2017-03-28 05:55] LABS: ANION GAP 11 MEQ/L (8-16); BLOOD UREA NITROGEN 20 MG/DL (7-18); CALCIUM LEVEL 8.6 MG/DL (8.5-10.1); CARBON DIOXIDE LEVEL 25 MEQ/L (21-32); CHLORIDE LEVEL 107 MEQ/L (98-107); CREATININE FOR GFR 1.18 MG/DL (0.70-1.30); GLOMERULAR FILTRATION RATE > 60.0 (>60); GLUCOSE, FASTING 160 MG/DL (70-105); POTASSIUM SERUM 4.8 MEQ/L (3.5-5.1); SODIUM LEVEL 143 MEQ/L (136-145)
[2017-03-28] MEDS: SODIUM CHLORIDE 0.9% INJ 10 ML SYR IV SCH ×3 (06:00→20:17)
[2017-03-28] MEDS: IPRATROPIUM 0.5MG/ALBUTEROL 2.5MG INH SOL UD 3ML (DUONEB)(J7620) NEB SCH ×3 (07:06→23:32)
[2017-03-28] MEDS: DOCUSATE SODIUM 100 MG CAP PO SCH ×2 (08:21→20:17)
[2017-03-28 09:49] LABS: INR 1.1
--- NOTE | 2017-03-28 14:16 | IPNPDOC ---
Subjective Date Seen The patient was seen on 03/28/17. Subjective Chief Complaint/HPI The patient is a 27-year-old male admitted with a reason for visit of Community Aquired Pneumonia, Sepsis. Events since last encounter Jed Cordova, 27 year old male, who presented with SOB. He claims that his SOB and chest pain are continuing to improve. He says that the increased SOB while laying down has resolved but he still has overall SOB which has improved since the previous day. His chest pain with laying down has resolved completely. He still has a cough with sensation of sputum in his throat and he claims this cough was worse throughout the night. He has not had any more issues urinating. He has not had a bowel movement for 3 days and attributes this to him not having eaten for 4 days. He thinks he his diminished appetite is beginning to resolve. He denies fever, chills, nausea. General: Denies: Chills, Fatigue, Malaise, Normal Appetite Constitutional: Denies: Chills, Fever ENT: Denies: Dysphagia, Sore Throat Skin: Denies: Rash, Lesions, Bruising Pulmonary: Denies: Dyspnea, Cough Cardiovascular: Denies: Chest Pain, Palpitations Gastrointestinal: Denies: Nausea, Vomiting, Abdominal Pain, Diarrhea, Constipation Genitourinary: Denies: Retention Neurological: Denies: Weakness Objective Physical Examination General Exam: Positive: Alert, No Acute Distress Eye Exam: Positive: PERRLA, Conjunctiva & lids normal, EOMI ENT Exam: Positive: Atraumatic Neck Exam: Positive: Supple Chest Exam: Positive: Diminished (at the bases, otherwise clear), Negative: Clear to auscultation, Rales, Rhonchi, Wheezing Heart Exam: Positive: Rate Normal, Regular Rhythm, Other (distant heart sounds to body habitus), Negative: Gallops, Murmurs Abdomen Exam: Positive: Normal bowel sounds, Soft, Negative: Tenderness Extremity Exam: Positive: Normal pulses, Negative: Clubbing, Cyanosis, Edema Skin Exam: Positive: Nl turgor and temperature, Other skin issue (acanthosis nigricans noted on bilateral hands and back of the neck), Negative: Rash Neuro Exam: Positive: Normal Speech, Cranial Nerves 3-12 NL Psych Exam: Positive: Mental status NL, Mood NL, Oriented x 3 Assessment /Plan Problems (1) Pulmonary emboli Status: Acute Problem Text: -Will continue heparin until warfarin (INR) is therapeutic -On supplemental Oxygen and CPAP when sleeping. He is slowly being weaned. Pulmonology consulted, their input is appreciated. -He does not have a primary care physician, therefore this will need to be established prior to discharge for follow-up -Ct angio showed possible lower lobe emboli. Patient is too large to get a V/Q scan. Will therefore treat him therapeutically as if he had confirmed PE (2) CAP (community acquired pneumonia) Status: Acute Problem Text: -Ct angio showed bilateral lung opacities which possibly are pneumonia, atelectasis, or the combination of both. -conitinue azithromycin 500 mg IV q24h and ceftriaxone 1 mg IV q24h. -He still has not been able to produce a sputum culture. (3) Acute respiratory failure with hypoxia Problem Text: -CPAP while sleeping only now. Continue with oxygen supplementation per recommendations from pulmonology (4) Sepsis Status: Acute Problem Text: -conitinue azithromycin 500 mg IV q24h and ceftriaxone 1 mg IV q24h until clinically stable. -Continue to monitor fluids and blood pressure. Monitor central line placement. (5) Lactic acidosis Status: Resolved (6) Anemia Response to Treatment: Stable (7) Leukocytosis (8) Urinary retention Status: Resolved (9) Acanthosis nigricans Status: Chronic (10) Morbid obesity Status: Chronic Plan/VTE VTE Prophylaxis Ordered?: Yes (heparin) VS, I&O, 24H, Fishbone Vital Signs/I&O Vital Signs Date Time Temp Pulse Resp B/P (MAP) Pulse Ox O2 Delivery O2 Flow Rate FiO2 03/28/17 07:08 45 03/28/17 06:00 84 22 94 NIPPV (BIPAP/CPAP) 03/28/17 04:00 97.4 141/76 (97) 03/26/17 20:00 15.0 Laboratory Data 24H LABS Laboratory Tests 2 03/27/17 12:18: Prothrombin Time 16.3H, Prothromb Time International Ratio 1.29, Activated Partial Thromboplast Time 141.7*H 03/27/17 19:24: Activated Partial Thromboplast Time 48.2H 03/28/17 01:52: Activated Partial Thromboplast Time 50.6H 03/28/17 04:59: Nucleated Red Blood Cells % (auto) 0.2H, Anion Gap 11, Glomerular Filtration Rate > 60.0, Blood Urea Nitrogen 20H, Creatinine 1.18, Sodium Level 143, Potassium Level 4.8, Chloride Level 107, Carbon Dioxide Level 25, Calcium Level 8.6 CBC/BMP Laboratory Tests 03/28/17 04:59 Red Blood Count 4.56, Mean Corpuscular Volume 84.6, Mean Corpuscular Hemoglobin 26.1 L, Mean Corpuscular Hemoglobin Concent 30.8 L, Red Cell Distribution Width 14.9 H, Calcium Level 8.6 Microbiology Microbiology 03/26/17 Blood Culture - Preliminary, Resulted No growth after 24 hours . All specim... 03/26/17 Blood Culture - Preliminary, Resulted No growth after 24 hours . All specim... 03/27/17 Respiratory Virus Panel (PCR) ([facility]) - Final, Complete 03/26/17 Influenza Virus Type A Antigen - Final, Complete 03/26/17 Influenza Virus Type B Antigen - Final, Complete NEVIN PATINO DO Mar 28, 2017 08:13
[2017-03-28] MEDS: AZITHROMYCIN INJ 500 MG, VIAL MATE ADAPTER 1 EACH in D5W 250 ML IV SCH (17:30)
[2017-03-28] MEDS: CEFTRIAXONE SOD 1 GM in APPROPRIATE DILUENT 1 EA IV SCH (17:30)
[2017-03-28] MEDS: WARFARIN SOD 5 MG TAB PO SCH (17:30)
[2017-03-29] VITALS (9 sets, daily range): BP systolic 134–165; BP diastolic 62–98; O2SAT 90–97
--- NOTE | 2017-03-29 00:19 | ECHO ---
DATE OF PROCEDURE: 03/27/2017 REFERRING PHYSICIAN: Dr. Sariah Hargrove INDICATION: Dyspnea. HEIGHT: 178 cm WEIGHT: 281 kg 2D MEASUREMENTS: Left atrium: 4.8 cm Proximal ascending aorta: 2.6 cm Aortic root: 3.4 cm Aortic annulus: 2.6 cm Ventricular septum: 1.56 cm Posterior wall: 1.60 cm Left ventricle diastole: 5.0 cm DOPPLER MEASUREMENTS: Aortic valve velocity: 128 cm/s LVOT velocity: 72.2 cm/s Mitral E velocity: 85.3 cm/s Mitral A velocity: 83.6 cm/s Mitral deceleration time: 161 ms Very mild tricuspid regurgitation. Estimated right ventricle systolic pressure: 45 mmHg assuming a right atrial pressure of 5 mmHg Pulmonary artery systolic pressure: 59 mmHg by pulmonary acceleration time method. DESCRIPTION: Rhythm was sinus tachycardia. No pericardial effusion. This was a technically difficult echocardiogram. This is a 2D, M-mode, color flow Doppler and pulse wave Doppler examination and included attempts at mitral annular tissue Doppler. CONCLUSIONS: 1. Moderate concentric left ventricle hypertrophy. Normal left ventricle systolic function. Left ventricular ejection fraction (LVEF) 60% by visual estimate. Probably normal left ventricular (LV) diastolic function but differential would include grade 2 LV diastolic dysfunction (pseudo-normal filling pattern). Unfortunately, differentiation was difficult because of technically difficult mitral annular tissue Doppler. 2. Moderate left atrial dilatation. 3. Suggestive of moderate elevation of pulmonary artery systolic pressure and estimated right ventricle systolic pressure. 4. Technically difficult echocardiogram.
[2017-03-29] MEDS: methylPREDNISolone INJ 125 MG/2 ML VIAL (J2930) IV SCH ×2 (02:24→14:00)
[2017-03-29] MEDS: HEPARIN DRIP 25,000 UNITS in APPROPRIATE DILUENT 1 EA IV SCH ×4 (03:07→23:50)
[2017-03-29 05:05] LABS: MEAN CORPUSCULAR HEMOGLOBIN 26.5 pg (27.0-33.0); MEAN CORPUSCULAR HGB CONC 31.3 g/dl (32.0-36.5); MEAN CORPUSCULAR VOLUME 84.5 fl (80.0-96.0); PLATELET COUNT, AUTOMATED 213 10^3/uL (150-450); RED CELL DISTRIBUTION WIDTH 14.8 % (11.5-14.5); WHITE BLOOD COUNT 14.5 10^3/uL (4.0-10.0)
[2017-03-29 05:07] LABS: INR 1.22
[2017-03-29] MEDS: SODIUM CHLORIDE 0.9% INJ 10 ML SYR IV SCH ×3 (05:26→22:00)
[2017-03-29 06:16] LABS: ANION GAP 10 MEQ/L (8-16); BLOOD UREA NITROGEN 23 MG/DL (7-18); CALCIUM LEVEL 8.8 MG/DL (8.5-10.1); CARBON DIOXIDE LEVEL 28 MEQ/L (21-32); CHLORIDE LEVEL 102 MEQ/L (98-107); CREATININE FOR GFR 1.07 MG/DL (0.70-1.30); GLOMERULAR FILTRATION RATE > 60.0 (>60); GLUCOSE, FASTING 137 MG/DL (70-105); POTASSIUM SERUM 4.5 MEQ/L (3.5-5.1); SODIUM LEVEL 140 MEQ/L (136-145)
[2017-03-29] MEDS: DOCUSATE SODIUM 100 MG CAP PO SCH ×2 (08:07→21:00)
[2017-03-29] MEDS: IPRATROPIUM 0.5MG/ALBUTEROL 2.5MG INH SOL UD 3ML (DUONEB)(J7620) NEB SCH ×3 (08:20→23:59)
--- NOTE | 2017-03-29 14:42 | IPNPDOC ---
Subjective Date Seen The patient was seen on 03/29/17. Subjective Chief Complaint/HPI The patient is a 27-year-old male admitted with a reason for visit of Community Aquired Pneumonia, Sepsis. Events since last encounter Jed Cordova continues to state that his condition is improving. He says that his SOB is not as bad as it was the previous day and that he is tolerating well being off the BiPAP/CPAP during the day. He claims that he does not have SOB unless he gets out of bed and walks around his room. When he walks to his bathroom he feels "very winded" and he had some chest pain the last time he attempted to walk. Otherwise, he says that he has no chest pain. His cough is waning and he feels less of a sensation of mucous in his throat. He has not attempted to use his acapella device yet. He denies fevers, chills, sweats, nausea, vomiting, headaches, or dizziness. General: Reports: Normal Appetite, Denies: Chills, Night Sweats Constitutional: Denies: Chills, Fever, Night Sweats ENT: Denies: Head Aches Skin: Denies: Rash, Lesions Pulmonary: Reports: Dyspnea, Cough Cardiovascular: Reports: Chest Pain (when walking), Denies: Orthopnea, Paroxysmal Noc. Dyspnea, Lt Headedness Gastrointestinal: Denies: Nausea, Vomiting, Abdominal Pain, Diarrhea, Constipation Genitourinary: Denies: Dysuria, Retention Objective Physical Examination General Exam: Positive: Alert, Cooperative, No Acute Distress Eye Exam: Positive: PERRLA, EOMI ENT Exam: Positive: Atraumatic, Mucous membr. moist/pink Neck Exam: Positive: Supple Chest Exam: Positive: Clear to auscultation, Negative: Rales, Rhonchi, Wheezing, Diminished Heart Exam: Positive: Rate Normal, Regular Rhythm, Other (heart sounds distant due to body habitus), Negative: Gallops, Murmurs Abdomen Exam: Positive: Normal bowel sounds, Soft, Negative: Tenderness Extremity Exam: Negative: Clubbing, Cyanosis, Edema Skin Exam: Positive: Other skin issue (acanthosis nigricans noted on bilateral hands and back of the neck), Negative: Rash Neuro Exam: Positive: Normal Speech, Cranial Nerves 3-12 NL Psych Exam: Positive: Mood NL, Oriented x 3 Assessment /Plan Problems (1) Pulmonary emboli Status: Acute Problem Text: -aPTT is within therapeutic range, will continue heparin until warfarin (INR) is therapeutic -continues to be weaned off of O2, contines to use CPAP at night and O2 mask during the day. Pulmonology consulted, their input is appreciated. -He does not have a primary care physician, therefore this will need to be established prior to discharge for follow-up -Ct angio showed possible lower lobe emboli. Patient is too large to get a V/Q scan. Will therefore treat him therapeutically as if he had confirmed PE (2) CAP (community acquired pneumonia) Status: Acute Problem Text: -Ct angio showed bilateral lung opacities which possibly are pneumonia, atelectasis, or the combination of both. -conitinue azithromycin 500 mg IV q24h and ceftriaxone 1 mg IV q24h. -He still has not been able to produce a sputum culture. (3) Acute respiratory failure with hypoxia Problem Text: -Continues to use CPAP only while sleeping. Continue with oxygen supplementation per recommendations from pulmonology (4) Sepsis Status: Resolved (5) Lactic acidosis Status: Resolved (6) Anemia Response to Treatment: Stable (7) Leukocytosis (8) Urinary retention Status: Resolved (9) Acanthosis nigricans Status: Chronic (10) Morbid obesity Status: Chronic Plan/VTE VTE Prophylaxis Ordered?: Yes (heparin) Plan We will ask physical therapy to come and evaluate and treat him as necessary today. He still needs to be weaned off of his oxygen, and his INR still subtherapeutic, therefore we will continue with the heparin drip at this time. Warfarin was only started a few days ago, however if his INR does not pick remover, we may need to increase his dose. We will continue with same for today as it was just started a few days ago. VS, I&O, 24H, Fishbone Vital Signs/I&O Vital Signs Date Time Temp Pulse Resp B/P (MAP) Pulse Ox O2 Delivery O2 Flow Rate FiO2 03/29/17 04:00 97.5 75 22 142/97 (112) 96 NIPPV (BIPAP/CPAP) 45 03/28/17 20:00 6.0 Laboratory Data 24H LABS Laboratory Tests 2 03/28/17 08:22: Prothrombin Time 14.4, Prothromb Time International Ratio 1.10, Activated Partial Thromboplast Time 73.1H, Estimated Mean Plasma Glucose 131H, Hemoglobin A1c 6.2 03/28/17 14:38: Activated Partial Thromboplast Time 64.6H 03/28/17 20:17: Activated Partial Thromboplast Time 57.5H 03/29/17 04:44: Prothrombin Time 15.7H, Prothromb Time International Ratio 1.22, Activated Partial Thromboplast Time 105.0H, Nucleated Red Blood Cells % (auto) 0.2H, Anion Gap 10, Glomerular Filtration Rate > 60.0, Blood Urea Nitrogen 23H, Creatinine 1.07, Sodium Level 140, Potassium Level 4.5, Chloride Level 102, Carbon Dioxide Level 28, Calcium Level 8.8 CBC/BMP Laboratory Tests 03/29/17 04:44 Red Blood Count 4.46, Mean Corpuscular Volume 84.5, Mean Corpuscular Hemoglobin 26.5 L, Mean Corpuscular Hemoglobin Concent 31.3 L, Red Cell Distribution Width 14.8 H, Calcium Level 8.8 Microbiology Microbiology 03/26/17 Blood Culture - Preliminary, Resulted No Growth after 48 hours. All Specime... 03/26/17 Blood Culture - Preliminary, Resulted No Growth after 48 hours. All Specime... 03/28/17 Stool Occult Blood ([facility]), Received Pending 03/27/17 Respiratory Virus Panel (PCR) ([facility]) - Final, Complete 03/26/17 Influenza Virus Type A Antigen - Final, Complete 03/26/17 Influenza Virus Type B Antigen - Final, Complete NEVIN PATINO DO Mar 29, 2017 07:57
[2017-03-29] MEDS: WARFARIN SOD 5 MG TAB PO SCH (17:30)
[2017-03-29] MEDS: CEFTRIAXONE SOD 1 GM in APPROPRIATE DILUENT 1 EA IV SCH (17:30)
[2017-03-29] MEDS: AZITHROMYCIN INJ 500 MG, VIAL MATE ADAPTER 1 EACH in D5W 250 ML IV SCH (17:31)
[2017-03-30 04:11] VITALS: BP 153/86
[2017-03-30] MEDS: SODIUM CHLORIDE 0.9% INJ 10 ML SYR IV SCH ×3 (05:31→23:42)
[2017-03-30] MEDS: HEPARIN DRIP 25,000 UNITS in APPROPRIATE DILUENT 1 EA IV SCH ×3 (05:33→21:16)
[2017-03-30 06:00] LABS: MEAN CORPUSCULAR HEMOGLOBIN 26.1 pg (27.0-33.0); MEAN CORPUSCULAR HGB CONC 30.6 g/dl (32.0-36.5); MEAN CORPUSCULAR VOLUME 85.1 fl (80.0-96.0); PLATELET COUNT, AUTOMATED 199 10^3/uL (150-450)
[2017-03-30 06:10] LABS: INR 1.17
[2017-03-30 06:18] LABS: ANION GAP 7 MEQ/L (8-16); BLOOD UREA NITROGEN 23 MG/DL (7-18); CALCIUM LEVEL 8.4 MG/DL (8.5-10.1); CARBON DIOXIDE LEVEL 29 MEQ/L (21-32); CHLORIDE LEVEL 105 MEQ/L (98-107); GLOMERULAR FILTRATION RATE > 60.0 (>60); GLUCOSE, FASTING 95 MG/DL (70-105); POTASSIUM SERUM 3.9 MEQ/L (3.5-5.1); SODIUM LEVEL 141 MEQ/L (136-145)
--- NOTE | 2017-03-30 06:29 | CCN ---
DATE OF VISIT: 03/28/2017 TIME OF VISIT: 0900 hours I again attended Mr. Cordova here in the intensive care unit. He remains on continuous positive airway pressure (CPAP) for naps and nightly at 6 cm of water pressure with an FiO2 between 40% and 45%. Oxygen saturations have remained between 93% and 97%. Maximum temperature (Tmax) overnight 97.4, blood pressure generally in the 140s systolic, heart rate between 80 and 95 with a sinus mechanism. Most recent laboratories show a white blood cell count of 15.4, hemoglobin 11.9, and platelet count 225,000. Sodium 143, potassium 4.8, chloride 107, CO2 of 25, BUN 20, creatinine 1.18, glucose 160. He is adequately anticoagulated by the primary service with heparin. Coumadin has been started. ON EXAM: He is awake, alert, and appropriate. Moves all extremities. Denies any other new complaints. HEENT: Otherwise, normocephalic, atraumatic. Pupils do react. Neck: Reasonably supple. Jugular venous system is difficult to assess on the basis of body habitus and the CPAP mask. Chest: Is clear anteriorly. Dependently difficult to assess as he is lying in bed. Cardiac Exam: Markedly distant. Pulses are regular. Abdomen: Morbidly obese. Soft with active bowel sounds. Extremities: Show chronic venous stasis changes but no cyanosis or clubbing. Neurologic: She is awake, alert, and appropriate. Psychiatric: Normal mood and affect. IMPRESSION: 1. Chronic hypoxemic respiratory failure. 2. Morbid obesity with suspected hypoventilation. 3. Strongly suspect underlying obstructive sleep apnea (KEYA). 4. Pneumonia versus pulmonary embolism (PE). RECOMMENDATIONS: At this point, I am in full agreement with continuing empiric antimicrobials as well as full anticoagulation. We will continue to wean his CPAP during the day as he does reasonably well on high-flow mask. He undoubtedly will need a sleep study at the time of discharge. We cannot even consider discharge until he is able to be weaned at least to nasal cannula oxygen. It is conceivable as well that he was considerably more hypoxic at home than he was aware of, and only time will tell what his real baseline is going to be. At this point, we will proceed as outlined above. Further recommendations will be made in the progress record as new information becomes available.
[2017-03-30 08:00] VITALS: BP 143/82
[2017-03-30] MEDS: IPRATROPIUM 0.5MG/ALBUTEROL 2.5MG INH SOL UD 3ML (DUONEB)(J7620) NEB SCH ×3 (08:30→23:27)
[2017-03-30] MEDS: DOCUSATE SODIUM 100 MG CAP PO SCH ×2 (08:42→20:34)
[2017-03-30] MEDS: predniSONE 20 MG TAB PO SCH (08:42)
[2017-03-30 12:00] VITALS: BP 118/57
[2017-03-30] MEDS: WARFARIN SOD 5 MG TAB PO SCH (16:51)
[2017-03-30] MEDS: CEFTRIAXONE SOD 1 GM in APPROPRIATE DILUENT 1 EA IV SCH (16:51)
[2017-03-30] MEDS: AZITHROMYCIN INJ 500 MG, VIAL MATE ADAPTER 1 EACH in D5W 250 ML IV SCH (17:47)
[2017-03-30] MEDS ORDERED: ELIQ5TAB PO (19:15)
[2017-03-30 19:36] VITALS: BP 139/86
--- NOTE | 2017-03-30 20:22 | IPNPDOC ---
Subjective Date Seen The patient was seen on 03/30/17. Subjective Chief Complaint/HPI The patient is a 27-year-old male admitted with a reason for visit of Community Aquired Pneumonia, Sepsis. Events since last encounter Jed Cordova briskly sat up onto the side of his bed when woken up. He claims that his SOB has improved even with walking but that he "got a little tangled up in my cords" while at the bathroom and he got "winded" while maneuvering that. He also admits to getting lightheaded during this event but denies lightheadedness otherwise. His chest pain with ambulation has diminished from the previous day but it is still minimally present. His cough is continuing to improve and he has even less sputum from previous day, the sputum remains clear. Patient declined a rectal exam but does admit to seeing streaks of blood on toilet paper. He is still using and tolerating CPAP at night and with naps and O2 supplementation during the day. He denies fevers, chills, nausea, headache, hematochezia, melena, abdominal pain, and urinary retention. General: Denies: Chills Constitutional: Denies: Chills, Fever ENT: Denies: Head Aches, Sore Throat Skin: Denies: Rash, Lesions, Bruising, Itching, Breakdown Pulmonary: Reports: Dyspnea, Cough Cardiovascular: Reports: Chest Pain, Denies: Palpitations, Edema, Lt Headedness Gastrointestinal: Denies: Nausea, Vomiting, Abdominal Pain, Diarrhea, Constipation, Melena, Hematochezia Genitourinary: Denies: Dysuria, Retention Neurological: Denies: Incoordination Psych: Reports: Mood Normal Objective Physical Examination General Exam: Positive: Alert, No Acute Distress Eye Exam: Positive: PERRLA, Conjunctiva & lids normal ENT Exam: Positive: Atraumatic Chest Exam: Positive: Clear to auscultation, Negative: Rales, Rhonchi, Wheezing, Diminished Heart Exam: Positive: Rate Normal, Regular Rhythm, Other (heart sounds faint from body habitus), Negative: Gallops, Murmurs Abdomen Exam: Positive: Normal bowel sounds, Soft, Negative: Tenderness Extremity Exam: Negative: Clubbing, Cyanosis, Edema Skin Exam: Positive: Other skin issue (acanthosis nigricans noted on bilateral hands and back of the neck), Negative: Rash, Breakdown Neuro Exam: Positive: Normal Speech, Cranial Nerves 3-12 NL Psych Exam: Positive: Mental status NL, Mood NL, Oriented x 3 Assessment /Plan Problems (1) Pulmonary emboli Status: Acute Problem Text: -aPTT remains within therapeutic range, will continue heparin until warfarin ( INR) is therapeutic. INR went down to 1.17 from 1.22. - Because of the difficulties with achieving a therapeutic INR, we will send a prescription for Eliquis in to the pharmacy and requested PFS obtain prior authorization if necessary. If his insurance is willing to pay for another NOAC that would be fine also. I feel that this would be a more safe option for the patient requiring less visits for INR checks, and I anticipate that if he is this difficult with warfarin, keeping him in the therapeutic range for the full term of treatment may also be difficult. -continues to be weaned off of O2, continues to use CPAP at night and O2 mask during the day. Pulmonology consulted, their input is appreciated. -He does not have a primary care physician, therefore this will need to be established prior to discharge for follow-up -Ct angio showed possible lower lobe emboli. Patient is too large to get a V/Q scan. Will therefore treat him therapeutically as if he had confirmed PE (2) CAP (community acquired pneumonia) Status: Acute Problem Text: -Ct angio showed bilateral lung opacities which possibly are pneumonia, atelectasis, or the combination of both. -patient is tolerating antibiotics well so will conitinue azithromycin 500 mg IV q24h and ceftriaxone 1 mg IV q24h. (3) Acute respiratory failure with hypoxia Problem Text: -Continues to use CPAP only while sleeping. It would appear that he does have obstructive sleep apnea, although this is not confirmed. We may attempt to arrange for him to be discharged directly from the hospital to the sleep lab such that he may have this confirmed and then obtain CPAP at home if necessary. (4) Anemia Problem Text: A fecal occult blood was positive. Patient absolutely refused rectal exam. He does admit that occasionally after a bowel movement he has noticed blood on the toilet paper, and has even changed the type of toilet paper he uses in the past because of this. I suspect that is a very slow bleed and positive fecal occult blood is from hemorrhoids and his being on anticoagulation. We will continue to monitor his H&H on a daily basis. Further investigation may be warranted if he begins to drop at a faster rate. (5) Sepsis Status: Resolved (6) Lactic acidosis Status: Resolved (7) Leukocytosis Problem Text: He does have a persistent leukocytosis despite being completely afebrile and improved clinical presentation. I suspect that this is from his steroids. We will however continue with antibiotics of azithromycin and Rocephin (8) Urinary retention Status: Resolved (9) Acanthosis nigricans Status: Chronic (10) Morbid obesity Status: Chronic Problem Text: Complicating care Plan/VTE VTE Prophylaxis Ordered?: Yes (heparin) VS, I&O, 24H, Fishbone Vital Signs/I&O Vital Signs Date Time Temp Pulse Resp B/P (MAP) Pulse Ox O2 Delivery O2 Flow Rate FiO2 03/30/17 04:11 96.7 71 153/86 (108) 95 NIPPV (BIPAP/CPAP) 45 03/29/17 23:46 18 03/29/17 19:45 2.0 Laboratory Data 24H LABS Laboratory Tests 2 03/29/17 10:54: Activated Partial Thromboplast Time 71.9H 03/29/17 17:33: Activated Partial Thromboplast Time 70.8H 03/30/17 05:30: Activated Partial Thromboplast Time 108.3H, Nucleated Red Blood Cells % (auto) 0.1H, Prothrombin Time 15.1H, Prothromb Time International Ratio 1.17, Anion Gap 7L, Glomerular Filtration Rate > 60.0, Blood Urea Nitrogen 23H, Creatinine 1.10, Sodium Level 141, Potassium Level 3.9, Chloride Level 105, Carbon Dioxide Level 29, Calcium Level 8.4L CBC/BMP Laboratory Tests 03/29/17 17:33 03/30/17 05:30 Red Blood Count 4.37, Mean Corpuscular Volume 85.1, Mean Corpuscular Hemoglobin 26.1 L, Mean Corpuscular Hemoglobin Concent 30.6 L, Red Cell Distribution Width 15.0 H, Calcium Level 8.4 L Microbiology Microbiology 03/26/17 Blood Culture - Preliminary, Resulted No Growth after 72 hours. All specime... 03/26/17 Blood Culture - Preliminary, Resulted No Growth after 72 hours. All specime... 03/28/17 Stool Occult Blood (NISSA) - Final, Complete 03/27/17 Respiratory Virus Panel (PCR) (NISSA) - Final, Complete 03/26/17 Influenza Virus Type A Antigen - Final, Complete 03/26/17 Influenza Virus Type B Antigen - Final, Complete NEVIN PATINO DO Mar 30, 2017 08:13
[2017-03-30 21:45] VITALS: BP 140/88
[2017-03-30] MEDS ORDERED: SLF 3 ML SYR IV PRN (23:30)
[2017-03-31 04:00] VITALS: BP 145/81
[2017-03-31] MEDS: SODIUM CHLORIDE 0.9% INJ 10 ML SYR IV SCH ×3 (05:34→20:00)
[2017-03-31 05:55] LABS: MEAN CORPUSCULAR HEMOGLOBIN 25.6 pg (27.0-33.0); MEAN CORPUSCULAR HGB CONC 30.6 g/dl (32.0-36.5); MEAN CORPUSCULAR VOLUME 83.7 fl (80.0-96.0); PLATELET COUNT, AUTOMATED 178 10^3/uL (150-450); RED CELL DISTRIBUTION WIDTH 15.1 % (11.5-14.5); WHITE BLOOD COUNT 13.1 10^3/uL (4.0-10.0)
[2017-03-31 06:08] LABS: INR 1.2
[2017-03-31] MEDS: HEPARIN DRIP 25,000 UNITS in APPROPRIATE DILUENT 1 EA IV SCH ×2 (06:09→13:24)
[2017-03-31] MEDS: IPRATROPIUM 0.5MG/ALBUTEROL 2.5MG INH SOL UD 3ML (DUONEB)(J7620) NEB SCH ×3 (07:24→23:52)
[2017-03-31 07:39] LABS: ANION GAP 10 MEQ/L (8-16); BLOOD UREA NITROGEN 16 MG/DL (7-18); CALCIUM LEVEL 8.3 MG/DL (8.5-10.1); CARBON DIOXIDE LEVEL 27 MEQ/L (21-32); CHLORIDE LEVEL 105 MEQ/L (98-107); GLOMERULAR FILTRATION RATE > 60.0 (>60); GLUCOSE, FASTING 87 MG/DL (70-105); POTASSIUM SERUM 3.7 MEQ/L (3.5-5.1); SODIUM LEVEL 142 MEQ/L (136-145)
[2017-03-31 08:00] VITALS: BP 148/94
[2017-03-31] MEDS: predniSONE 20 MG TAB PO SCH (09:00)
[2017-03-31] MEDS: DOCUSATE SODIUM 100 MG CAP PO SCH ×2 (09:00→19:59)
[2017-03-31 12:00] VITALS: BP 140/84
[2017-03-31] MEDS ORDERED: ELIQ5TAB PO ×2 (15:10)
[2017-03-31] MEDS: CEFTRIAXONE SOD 1 GM in APPROPRIATE DILUENT 1 EA IV SCH (17:01)
[2017-03-31] MEDS: WARFARIN SOD 5 MG TAB PO SCH (17:01)
[2017-03-31 18:15] VITALS: BP 164/80
[2017-03-31] MEDS: AZITHROMYCIN INJ 500 MG, VIAL MATE ADAPTER 1 EACH in D5W 250 ML IV SCH (18:32)
--- NOTE | 2017-03-31 19:10 | IPNPDOC ---
Subjective Date Seen The patient was seen on 03/31/17. Subjective Chief Complaint/HPI The patient is a 27-year-old male admitted with a reason for visit of Community Aquired Pneumonia, Sepsis. Events since last encounter The patient continues to feel better on a daily basis. He is still on 2 L nasal cannula when I saw him this morning, however I discontinued this and he did maintain his oxygen sats approximately 95-96%. He did not complain of any shortness of breath without the oxygen. Otherwise, no acute events overnight. He does not have any additional complaints. The remainder of his review of systems negative. Objective Physical Examination General Exam: Positive: Alert, No Acute Distress Eye Exam: Positive: PERRLA, EOMI ENT Exam: Positive: Atraumatic Neck Exam: Positive: Supple Chest Exam: Positive: Normal air movement, Negative: Clear to auscultation, Rales, Rhonchi, Wheezing Heart Exam: Positive: Rate Normal, Other (distant heart sounds), Negative: Gallops, Murmurs, Rubs Abdomen Exam: Positive: Normal bowel sounds, Soft, Negative: Tenderness, Hepatospenomegaly Extremity Exam: Positive: Normal pulses, Negative: Clubbing, Cyanosis, Edema Skin Exam: Positive: Nl turgor and temperature, Other skin issue (acanthosis nigricans noted on bilateral hands and back of the neck), Negative: Rash Neuro Exam: Positive: Normal Speech, Cranial Nerves 3-12 NL Psych Exam: Positive: Mental status NL, Mood NL, Oriented x 3 Assessment /Plan Problems (1) Pulmonary emboli Status: Acute Problem Text: -As it has been difficult to achieve a therapeutic INR, we have consulted social media content specialist to try to get Eliquis approved, their input and efforts in the matter greatly appreciated. I have spoken with the pharmacy and it turns out that Eliquis is covered under his plan, however he does have a large co-pay, but they do have a coupon which the patient will need to activate prior to picking up the medication. This coupon should make it so he only has a $10 co- pay (each month) for up to 24 months of treatment, therefore this will cover him throughout the necessary time. His heparin drip will be discontinued at the same time that his first dose of Eliquis is administered, I have spoken with pharmacy and they indicate that no overlap is needed. -He does not have a primary care physician, therefore this will need to be established prior to discharge for follow-up -Ct angio showed possible lower lobe emboli. Patient is too large to get a V/Q scan. Will therefore treat him therapeutically as if he had confirmed PE (2) CAP (community acquired pneumonia) Status: Acute Problem Text: -Ct angio showed bilateral lung opacities which possibly are pneumonia, atelectasis, or the combination of both. -patient is tolerating antibiotics well so will conitinue azithromycin 500 mg IV q24h and ceftriaxone 1 mg IV q24h. (3) Acute respiratory failure with hypoxia Problem Text: -He did have a nocturnal oximetry performed, however this was while he is wearing oxygen, therefore we will repeat this again tonight on room air to determine if he will qualify for a sleep study. He will need to follow-up as an outpatient with the bioinformatics engineer group and set up an outpatient sleep study if indicated. (4) Anemia Problem Text: A fecal occult blood was positive. H&H is stable, patient refuses rectal exam, given his history I would suspect that he has a hemorrhoid. (5) Sepsis Status: Resolved (6) Lactic acidosis Status: Resolved (7) Leukocytosis Response to Treatment: Improving Problem Text: He does have a persistent leukocytosis despite being completely afebrile and improved clinical presentation. I suspect that this is from his steroids. We will however continue with antibiotics of azithromycin and Rocephin (8) Urinary retention Status: Resolved (9) Acanthosis nigricans Status: Chronic (10) Morbid obesity Status: Chronic Problem Text: Complicating care Plan/VTE VTE Prophylaxis Ordered?: Yes (heparin) VS, I&O, 24H, [facility] Vital Signs/I&O Vital Signs Date Time Temp Pulse Resp B/P (MAP) Pulse Ox O2 Delivery O2 Flow Rate FiO2 03/31/17 18:15 97.4 88 16 164/80 (108) 96 Room Air 03/31/17 08:00 2.0 03/30/17 04:11 45 I&O- Last 24 Hours up to 6 AM 04/01/17 06:00 Intake Total 1309 ml Output Total 0 ml Balance 1309 ml Laboratory Data 24H LABS Laboratory Tests 2 03/31/17 05:35: Nucleated Red Blood Cells % (auto) 0.0 03/31/17 05:36: Prothrombin Time 15.4H, Prothromb Time International Ratio 1.20, Activated Partial Thromboplast Time 99.0H, Anion Gap 10, Glomerular Filtration Rate > 60.0 , Blood Urea Nitrogen 16, Creatinine 1.00, Sodium Level 142, Potassium Level 3.7 , Chloride Level 105, Carbon Dioxide Level 27, Calcium Level 8.3L CBC/BMP Laboratory Tests 03/31/17 05:35 Red Blood Count 4.41, Mean Corpuscular Volume 83.7, Mean Corpuscular Hemoglobin 25.6 L, Mean Corpuscular Hemoglobin Concent 30.6 L, Red Cell Distribution Width 15.1 H 03/31/17 05:36 Calcium Level 8.3 L Microbiology Microbiology 03/26/17 Blood Culture - Final, Complete NO GROWTH AFTER 5 DAYS 03/26/17 Blood Culture - Final, Complete NO GROWTH AFTER 5 DAYS 03/28/17 Stool Occult Blood (NISSA) - Final, Complete 03/27/17 Respiratory Virus Panel (PCR) (NISSA) - Final, Complete 03/26/17 Influenza Virus Type A Antigen - Final, Complete 03/26/17 Influenza Virus Type B Antigen - Final, Complete NEVIN PATINO DO Mar 31, 2017 19:10
[2017-03-31] MEDS: APIXABAN 5 MG TAB (ELIQUIS) PO SCH (19:59)
[2017-04-01] MEDS: SODIUM CHLORIDE 0.9% INJ 10 ML SYR IV SCH ×2 (06:01→15:27)
[2017-04-01 06:25] LABS: MEAN CORPUSCULAR HEMOGLOBIN 25.8 pg (27.0-33.0); MEAN CORPUSCULAR HGB CONC 30.8 g/dl (32.0-36.5); MEAN CORPUSCULAR VOLUME 83.7 fl (80.0-96.0); PLATELET COUNT, AUTOMATED 184 10^3/uL (150-450); RED CELL DISTRIBUTION WIDTH 15.5 % (11.5-14.5); WHITE BLOOD COUNT 13.3 10^3/uL (4.0-10.0)
[2017-04-01 06:37] LABS: INR 1.24
[2017-04-01 06:59] LABS: ANION GAP 5 MEQ/L (8-16); BLOOD UREA NITROGEN 16 MG/DL (7-18); CALCIUM LEVEL 8.5 MG/DL (8.5-10.1); CARBON DIOXIDE LEVEL 31 MEQ/L (21-32); CHLORIDE LEVEL 107 MEQ/L (98-107); CREATININE FOR GFR 1.02 MG/DL (0.70-1.30); GLOMERULAR FILTRATION RATE > 60.0 (>60); GLUCOSE, FASTING 94 MG/DL (70-105); POTASSIUM SERUM 4.1 MEQ/L (3.5-5.1); SODIUM LEVEL 143 MEQ/L (136-145)
[2017-04-01] MEDS: IPRATROPIUM 0.5MG/ALBUTEROL 2.5MG INH SOL UD 3ML (DUONEB)(J7620) NEB SCH ×2 (08:02→15:55)
[2017-04-01] MEDS: predniSONE 20 MG TAB PO SCH (08:54)
[2017-04-01] MEDS: APIXABAN 5 MG TAB (ELIQUIS) PO SCH (08:54)
[2017-04-01] MEDS: DOCUSATE SODIUM 100 MG CAP PO SCH (08:55)
[2017-04-01] MEDS ORDERED: AZIT500T2 PO (11:51)
[2017-04-01] MEDS ORDERED: PRED10TA2 PO (11:51)
[2017-04-01] MEDS ORDERED: CEFD1CAP8 PO (11:51)
[2017-04-01] MEDS ORDERED: ELIQ5TAB PO (12:06)
--- NOTE | 2017-04-01 16:06 | DS.PDOC ---
Discharge Summary General Date of Admission 03/26/2017 Date of Discharge 04/01/2017 Discharge Summary PRIMARY CARE PHYSICIAN: His new PCP will be Dr Centeno at the [facility] clinic ATTENDING AT TIME OF DISCHARGE: Dr. Go DISCHARGE DIAGNOS(E)S: 1. Acute respiratory failure with hypoxia 2. Multiple lower lobe pulmonary emboli 3. Community-acquired pneumonia 4. Sepsis 5. Leukocytosis 6. Lactic acidosis 7. Nocturnal oxygen desaturations 8. Suspicion for obstructive sleep apnea 9. Morbid obesity 10. Acanthosis nigricans 11. Anemia HPI & HOSPITAL COURSE: Mr. Wilson is a 27-year-old male who presented to the emergency department with a 5-7 day history of worsening dyspnea on exertion, shortness of breath, and productive sputum. He was diagnosed with community acquired pneumonia and put empirically on Rocephin and azithromycin. His respiratory status declined quite quickly and he was then put on to CPAP. He did qualify for sepsis criteria. A central line was placed as peripheral IV access was lost multiple times and it was becoming increasingly more difficult to obtain. A CT angiography chest was obtained which revealed bilateral lung opacities possibly representing pneumonia or atelectasis or a combination thereof. He never was able to produce a satisfactory sputum for culture, blood cultures were negative, respiratory panel for PCR was negative. He also had multiple possible lower lobe emboli. A VQ scan could not be obtained as the patient exceeded the weight limit, therefore because of his critically ill status he is being treated as if these were confirmed pulmonary emboli. During his hospitalization he also did have 2 nocturnal oxygen studies, one with 2 L nasal cannula and the other on room air. Pulmonology kindly read these and indicated that the patient will need to wear oxygen at night, and recommends that he should follow-up in their office for a formal sleep study. His respiratory status did improve day by day, and now he has been off oxygen for a day and a half. He was ambulated with pulse ox earlier today and remained at approximately 95% SPO2 while ambulating over 300 ft. Therefore, he does appear to be stable for discharge at this time. PHYSICAL EXAMINATION ON DISCHARGE: GENERAL: Awake, alert, oriented. He is in no acute distress. CARDIOVASCULAR EXAMINATION: Distant heart sounds however it appears to be regular rate and rhythm, with no rubs, gallops, or murmur. RESPIRATORY EXAMINATION: Clear to auscultation bilaterally with no wheezes, rales, or rhonchi. ABDOMINAL EXAMINATION: Morbidly obese, soft, nontender, nondistended. Bowel sounds present. EXTREMITIES: No clubbing or edema noted. 2+ pulses in the radial bilaterally. DISPOSITION: Home DISCHARGE INSTRUCTIONS: With follow-up with Dr. Centeno at the [facility] resident clinic on April 07 at 8:45 AM. He will also need to follow-up with [facility] at their next available appointment such that he may be scheduled for a formal sleep study. A written prescription was also provided for nocturnal oxygen at 2 L nasal cannula for nocturnal desaturations and pneumonia. If symptoms return, or if you experience worsening of your symptoms, please call your doctor or return to the emergency department. ITEMS THAT NEED OUTPATIENT FOLLOWUP: Patient will need follow-up for pulmonary emboli treatment, he has already been started on Eliquis upon discharge. It was also suspected that he has obstructive sleep apnea, therefore he will need a formal sleep study to confirm this. My preceptor for this patient encounter was physically present in the building during the encounter and was fully available. As needed, all aspects of the patient interview, examination, medical decision making process, and medical care plan development were reviewed and approved by the preceptor. Preceptor is aware and concurs with the plan as stated in the body of this note and will attest to such by his/her cosignature. Vital Signs/I&Os Vital Signs Date Time Temp Pulse Resp B/P (MAP) Pulse Ox O2 Delivery O2 Flow Rate FiO2 04/01/17 11:40 95 Room Air 04/01/17 01:22 74 03/31/17 18:15 97.4 16 164/80 (108) 03/31/17 08:00 2.0 03/30/17 04:11 45 I&O- Last 24 Hours up to 6 AM 04/02/17 06:00 Intake Total 480 ml Output Total 400 ml Balance 80 ml Laboratory Data Labs 24H Laboratory Tests 2 04/01/17 06:02: Nucleated Red Blood Cells % (auto) 0.0, Prothrombin Time 15.8H, Prothromb Time International Ratio 1.24, Anion Gap 5L, Glomerular Filtration Rate > 60.0, Blood Urea Nitrogen 16, Creatinine 1.02, Sodium Level 143, Potassium Level 4.1, Chloride Level 107, Carbon Dioxide Level 31, Calcium Level 8.5 CBC/BMP Laboratory Tests 04/01/17 06:02 Red Blood Count 4.65, Mean Corpuscular Volume 83.7, Mean Corpuscular Hemoglobin 25.8 L, Mean Corpuscular Hemoglobin Concent 30.8 L, Red Cell Distribution Width 15.5 H, Calcium Level 8.5 Microbiology Microbiology 03/26/17 Blood Culture - Final, Complete NO GROWTH AFTER 5 DAYS 03/26/17 Blood Culture - Final, Complete NO GROWTH AFTER 5 DAYS 03/28/17 Stool Occult Blood (NISSA) - Final, Complete 03/27/17 Respiratory Virus Panel (PCR) (NISSA) - Final, Complete 03/26/17 Influenza Virus Type A Antigen - Final, Complete 03/26/17 Influenza Virus Type B Antigen - Final, Complete Discharge Medications Scheduled Apixaban Base (Eliquis) 5 Mg Tab, 5 MG PO BID Apixaban Base (Eliquis) 5 Mg Tab, 10 MG PO BID Azithromycin (Azithromycin) 500 Mg Tab, 500 MG PO DAILY Cefdinir (Cefdinir) 300 Mg Cap, 300 MG PO BID Prednisone (Prednisone) 10 Mg Tab, 10 MG PO TAPER Take 4 tabs daily x 3 days, then 3 tabs daily x 3 days, then 2 tabs daily x 3 days, then 1 tab daily x 3 days and stop Allergies Coded Allergies: No Known Allergies (Unverified , 03/26/17) NEVIN PATINO DO Apr 01, 2017 16:06
--- NOTE | 2017-04-03 10:21 | NOCOX ---
DATE OF STUDY: 03/30/2017 INTERPRETATION: Recording overnight oximetry was performed on 2 liters by nasal cannula. A total of 6 hours and 10 minutes of data was reviewed. Mean oxygen saturation for the study was 95% with a minimum recorded value of 80%. He spent 98.1% of the night with saturations equal to or greater than 90%. There were fluctuations in the SpO2 wave forms suggestive of sleep disordered breathing. IMPRESSION: 1. Acceptable nocturnal oxygenation on 2 liters by nasal cannula. 2. Fluctuations in the SpO2 waveforms suggestive of sleep disordered breathing. Clinical correlation will be necessary.
--- NOTE | 2017-04-03 11:35 | NOCOX ---
DATE OF STUDY: 03/31/2017 INTERPRETATION: Recording nocturnal oximetry was performed on room air. Only a total of 2 hours and 18 minutes of data was recorded. Mean oxygen saturation for this study was 91%. Minimum recorded value was 73%. He spent 19.6% of his time with saturations less than 88% with a vast majority of that time being in the 80s. His longest continuous time with saturation less than or equal to 88% was 6 minutes and 32 seconds. He had significant fluctuations and the SpO2 waveform strongly suggested sleep disorder of breathing. 1. Nocturnal hypoxemia. 2. Significant fluctuations in the SpO2 waveforms strongly suggestive of sleep disorder of breathing. Clinical correlation will be necessary.
== END 2017-04-01 16:15 | disposition home or self-care (01) | DRG 871 ==
LOC: M ED 13:38 → M ED INP 16:15 → M PCU 18:40 → M ICU 22:07 → M PCU 03-30 21:39 → M MS5PR 03-31 17:35
PROVIDERS: ADMIT Hospitalist; ATTEND Internal Medicine
PROC: 02HV33Z Insertion of Infusion Device into Superior Vena Cava, Percutaneous Approach (ICD-10-PCS; principal; 2017-03-26)
DX: A41.9 Sepsis, unspecified organism (principal); I26.99 Other pulmonary embolism without acute cor pulmonale; J96.01 Acute respiratory failure with hypoxia; J18.9 Pneumonia, unspecified organism; E87.2 Acidosis; Z68.42 Body mass index [BMI] 45.0-49.9, adult; E66.2 Morbid (severe) obesity with alveolar hypoventilation; D64.9 Anemia, unspecified

== ENCOUNTER → 2018-05-21 | Outpatient (REF) | payer OTHER ==
[~2018-05-21] MED LIST: AZIT500T2 PO; CEFD1CAP8 PO; ELIQ5TAB PO; PRED10TA2 PO
[2018-05-21 12:05] LABS: BASO % 0.3 % (0.0-1.0); EOS # 0.2 10^3/uL (0.0-0.50); EOS % 1.8 % (0.0-3.0); HEMATOCRIT 39.2 % (42.0-52.0); LYMPH # 2.4 10^3/uL (1.5-4.5); LYMPH % 21.8 % (24.0-44.0); MEAN CORPUSCULAR HEMOGLOBIN 25.9 pg (27.0-33.0); MEAN CORPUSCULAR HGB CONC 30.6 g/dl (32.0-36.5); MEAN CORPUSCULAR VOLUME 84.5 fl (80.0-96.0); MONO # 0.7 10^3/uL (0.0-0.8); MONO % 6.7 % (0.0-5.0); NEUTROPHILS # 7.6 10^3/uL (1.8-7.7); NEUTROPHILS % 68.8 % (36.0-66.0); PLATELET COUNT, AUTOMATED 192 10^3/uL (150-450); RED BLOOD COUNT 4.64 10^6/uL (4.30-6.10)
[2018-05-21 12:49] LABS: ALBUMIN 3.2 GM/DL (3.2-5.2); ALT/SGPT 25 U/L (12-78); BILIRUBIN,TOTAL 0.4 MG/DL (0.2-1.0); BLOOD UREA NITROGEN 16 MG/DL (7-18); CALCIUM LEVEL 8.4 MG/DL (8.5-10.1); CARBON DIOXIDE LEVEL 25 MEQ/L (21-32); CHLORIDE LEVEL 105 MEQ/L (98-107); CHOLESTEROL LEVEL 159 MG/DL (<200); CHOLESTEROL RISK RATIO 3.785 (<5); CREATININE FOR GFR 0.85 MG/DL (0.70-1.30); GLOMERULAR FILTRATION RATE > 60.0 (>60); GLUCOSE, FASTING 97 MG/DL (70-100); HDL CHOLESTEROL 42 MG/DL (>40); HEMOGLOBIN A1c 6.2 %; LDL CHOLESTEROL 90 MG/DL (<100); NON-HDL-C 117 MG/DL; POTASSIUM SERUM 3.9 MEQ/L (3.5-5.1); SODIUM LEVEL 140 MEQ/L (136-145); TOTAL PROTEIN 7.2 GM/DL (6.4-8.2); TRIGLYCERIDES LEVEL 135 MG/DL (<150)
[2018-05-21 13:51] LABS: TOTAL 25(OH) VITAMIN D 6.8 NG/ML (30.0-100.0)
[2018-05-21 14:20] LABS: FREE T4 0.95 NG/DL (0.76-1.46)
== END ==
LOC: M SFHCPLAZ 10:03
PROVIDERS: ATTEND Nurse Practitioner Family
DX: Z13.228 Encounter for screening for other metabolic disorders (principal); E66.01 Morbid (severe) obesity due to excess calories; Z86.711 Personal history of pulmonary embolism; R73.01 Impaired fasting glucose; E55.9 Vitamin D deficiency, unspecified